=== PATIENT | male | born 1985 | race Caucasian/White ===

== ENCOUNTER 2020-09-22 12:20 | Emergency (ER) | payer BC, SELFPAY ==
[2020-09-22 12:27] VITALS: BP 157/104; PULSE 60; RESP 17; TEMP 36.6; O2SAT 99
--- NOTE | 2020-09-22 12:40 | PC.NURSE ---
Arrives ambulatory steady gait from triage, brought in pt for worsening depression symptoms, pt states he feels sad, I just want to sleep , took two Tylenol PM this am because I wanted to sleep and did not call into work today (second day he has missed work, per stated why does it matter, they will just fire me anyways ). Pt denies SI/HI, denies previous psych admissions, states he saw psychiatrist for the first time last month and was started on Lexapro. concerned as pt was on methylprednisone pack for foot pain and came off them Monday maybe that triggered his symptoms . Pt and also endorse heavy alcohol use on Monday, pt is not a daily drinker
--- NOTE | 2020-09-22 13:03 | ED.PSYCH ---
HPI - Psych General Chief Complaint: Psychiatric Symptoms Stated Complaint: altered mental status Time Seen by Provider: 09/22/20 12:25 Source: patient and family () Mode of arrival: ambulatory Limitations: no limitations History of Present Illness HPI Narrative: Patient is a 35 year old male who presents with complaints of depression. When asked patient states I am sad, I have been sad my whole life . Patient denies suicidal or homicidal ideations. Patient reports currently takes Lexapro. Patient's at bedside. reports that patient was a no call, no show at work today, which she reports he has never done. reports patient did drink a large amount of alcohol on Monday. Related Data Home Medications Medication Instructions Recorded Confirmed Lexapro 09/22/20 Allergies Allergy/AdvReac Type Severity Reaction Status Date / Time No Known Allergies Allergy Verified 09/22/20 12:36 Review of Systems Review of Systems: Narrative: CONSTITUTIONAL: Denies fever, chills, or sweats. EYES: Denies visual changes, redness, or discharge. ENT: Denies rhinorrhea, congestion, sore throat, or otalgia. CARDIOVASCULAR: Denies chest pain, palpitations, or edema. RESPIRATORY: Denies cough or dyspnea. GASTROINTESTINAL: Denies abdominal pain, nausea, vomiting, or diarrhea. GENITOURINARY: Denies dysuria or hematuria. SKIN: Denies rash or itching. MUSCULOSKELETAL: Denies back pain, joint pain, or myalgia. NEUROLOGIC: Denies headache, numbness, dizziness, or weakness. PSYCHIATRIC: Reports depression [facility] Past Medical History Medical History Depression Surgical History Surgical History History of back surgery Hx of shoulder surgery Family History Family History Other No significant family history Social History Social History (Updated 09/22/20 @ 13:13 by KATIE Milian) Smoking status: Current every day smoker Alcohol intake: current Alcohol use details: occasional Substance use: never Living arrangements: with family Occupation/Education: occupation Comments At the time of signature, I have reviewed and agree with nursing past medical, surgical, social, and family history unless otherwise noted. Please see nursing chart for further information. There is no relevant family history pertinent to the presenting complaint. Exam Narrative: Exam Narrative: GENERAL: Well-appearing, well-nourished, and in no acute distress. HEAD: Normocephalic, atraumatic. EYES: EOMI. No redness or drainage. Conjunctiva are normal. ENT: Mucous membranes pink and moist. CHEST: No respiratory distress. HEART: Regular rate and rhythm. EXTREMITIES: Normal range of motion. SKIN: Warm, dry, no rash. NEURO: No focal deficits. Alert and oriented x3. Gait steady. PSYCH: Flat affect, appears sad. Course Consultations Consultation #1: community service worker came to speak with patient. Patient does not meet criteria for inpatient admission at this time. Crisis left patient and multiple resources and urgent contact number. Date: 09/22/20 Time: 16:00 Vital Signs Vital signs: Vital Signs Temperature 36.6 C 09/22/20 12:27 Pulse Rate 60 09/22/20 12:27 Respiratory Rate 17 09/22/20 12:27 Blood Pressure 157/104 H 09/22/20 12:27 Pulse Oximetry 99 09/22/20 12:27 Temperature 36.6 C 09/22/20 12:27 Pulse Rate 60 09/22/20 12:27 Respiratory Rate 17 09/22/20 12:27 Blood Pressure 157/104 H 09/22/20 12:27 Pulse Oximetry 99 09/22/20 12:27 Reviewed MDM - Psych MDM Narrative Medical decision making narrative: Patient continues to deny suicidal or homicidal thoughts. After speaking with crisis work, patient does not qualify for inpatient admission. Patient is aware that if he has thoughts of harming self or others, he is to ret
--- NOTE | 2020-09-22 13:34 | PC.NURSE ---
Pt given urinal for sample.
[2020-09-22 13:37] LABS: Basophils Absolute Auto 0.1 K/mm3 (0.0-0.1); Basophils Percent Auto 0.5 % (0.2-1.2); Eosinophils Absolute Auto 0.1 K/mm3 (0-0.3); Eosinophils Percent Auto 1.1 % (0-4.4); Hematocrit 47.1 % (42.0-52.0); Hemoglobin 15.6 g/dL (14.0-18.0); Immature Granulocyte Absolute 0.05 K/mm3 (0.00-0.031); Immature Granulocyte Percent A 0.4 % (0-0.5); Lymphocytes Absolute Auto 3.01 K/mm3 (0.9-3.2); Lymphocytes Percent Auto 26.1 % (18.3-44.2); Mean Corpuscular HGB Conc 33.1 g/dl (32-36); Mean Corpuscular Hemoglobin 31.3 pg (26-34); Mean Corpuscular Volume 94.4 fl (80-100); Mean Platelet Volume 8.5 fl (7.4-10.4); Monocytes Absolute Auto 0.6 K/mm3 (0.1-0.6); Monocytes Percent Auto 5.1 % (2.6-8.5); Neutrophils Absolute Auto 7.7 K/mm3 (1.3-6.7); Neutrophils Percent Auto 66.8 % (45.5-73.1); Platelet Count Result 255 k/mm3 (150-375); Red Blood Count 4.99 M/mm3 (4.6-6.20); Red Cell Distribution Width 12.5 % (11.5-14.5); White Blood Count 11.5 K/mm3 (4.5-10.0)
[2020-09-22 13:47] LABS: Alanine Aminotransferase 123 U/L (4-50); Albumin Level 4.4 g/dL (3.5-5.1); Alkaline Phosphatase 68 U/L (38-126); Anion Gap 5 mmol/L (8-16); Aspartate Amino Transferase 65 U/L (17-59); Bilirubin,Total 0.8 mg/dL (0.2-1.3); Blood Urea Nitrogen 16 mg/dL (9-20); Calcium 9.3 mg/dL (8.4-10.2); Carbon Dioxide 35 mmol/L (22-30); Chloride 102 mmol/L (98-107); Estimated CRCL calculation 91 ml/min; Estimated Glomerular Filt Rate > 60; Ethanol < 10 mg/dL (<10); Glucose 88 mg/dL (75-110); Sodium 142 mmol/L (137-145)
[2020-09-22 13:53] LABS: Add Urine Microscopic? YES; Appearance Urine Clear (Clear); Bilirubin Urine Negative (Negative); Blood Urine Negative (Negative); Color Urine Yellow (Yellow); Glucose Urine UA Negative (Negative); Ketones Urine Negative (Negative); Leukocyte Esterase Ur Negative LEU/UL (Negative); Mucus Urine Rare /lpf; Nitrate Urine Negative (Negative); Protein Urine Negative (Negative); RBC Urine 0-2 /hpf (0-2); Specific Grav Ur 1.028 (1.001-1.035); Squamous Epithelial Cell Urine Rare /hpf (Few); WBC Urine 0-3 /hpf
--- NOTE | 2020-09-22 14:45 | PC.NURSE ---
Crisis aware pt is medically cleared per ED PA. Pt asleep, non-labored respirations, easily arousable. at bedside
[2020-09-22 16:07] LABS: Amphetamine Screen Urine Negative (Negative); Barbiturate Screen Urine Negative (Negative); Benzodiazepines Screen Urine Negative (Negative); Cannabinoid Screen Urine Negative (Negative); Cocaine Screen Urine Negative (Negative); Methadone Screen Urine Negative (Negative); Opiate Screen Urine Negative (Negative); Phencyclidine Screen Urine Negative (Negative)
[2020-09-22 16:55] VITALS: BP 146/100; PULSE 89; RESP 17; O2SAT 96
[2020-09-23 15:23] LABS: SARS-CoV-2 RNA PCR Negative
== END 2020-09-22 16:58 | disposition home or self-care (01) ==
PROVIDERS: Emergency Provider Nurse Practitioner
DX: Z20.822 Contact with and (suspected) exposure to COVID-19 (principal); F32.9 Major depressive disorder, single episode, unspecified; F17.210 Nicotine dependence, cigarettes, uncomplicated
CPT/HCPCS: 36415; 80053; 80307; 81001; 84443; 85025; 99283; C9803; U0003; U0005

== ENCOUNTER 2024-01-26 09:17 | Outpatient (CLI) | payer BC, SELFPAY ==
--- NOTE | ~2024-01-26 | XR_ITS ---
EXAMINATION: XR abdomen obstructive series DATE: 01/26/2024 09:45 INDICATION: Rectal pain. Constipation. TECHNIQUE: Upright and supine views of the abdomen on 3 radiographs were obtained. COMPARISON: None. FINDINGS: There are no dilated loops of bowel. There is a moderate volume stool in the colon. No free intraperitoneal gas. There are changes of posterior fusion procedure in thoracolumbar spine. IMPRESSION: 1. Normal bowel gas pattern. Reviewed, dictated and finalized at location A.
--- NOTE | ~2024-01-26 | XR_ITS ---
EXAMINATION: XR chest 1V 01/26/2024 09:45 INDICATION: Constipation PROCEDURE: PA view of the chest COMPARISON: No prior studies for comparison. FINDINGS: The lungs are clear. The cardiomediastinal silhouette is within normal limits. There are no pleural effusions. There is no pneumothorax suspected. There are Edouard rods traversing the thoracic spine with dextrocurvature of the spine. IMPRESSION: 1: NO ACUTE CARDIOPULMONARY DISEASE. Reviewed, dictated and finalized at location B.
== END 2024-01-26 09:18 | disposition home or self-care (01) ==
DX: K59.00 Constipation, unspecified (principal); K62.89 Other specified diseases of anus and rectum
CPT/HCPCS: 71045; 74019